=== PATIENT | male | born 1940 | race Caucasian/White ===

== ENCOUNTER 2017-02-13 23:59 | Inpatient (IN) | payer MEDICARE, MEDICAID ==
[~2017-02-13] VITALS: Ht 162.6 cm; Wt 50.3 kg
[2017-02-14 00:45] LABS: BASOPHILS # (AUTO) 0.1 K/uL (0.0-8.0); EOSINOPHILS # (AUTO) 0.1 K/uL (0.0-0.7); EOSINOPHILS % (AUTO) 1.2 % (0.0-7.0); HEMATOCRIT 35.5 % (40-50); HEMOGLOBIN 11.9 G/DL (14.0-18.0); LYMPHOCYTES # (AUTO) 1.5 K/UL (0.8-4.8); LYMPHOCYTES % (AUTO) 14.5 % (20.5-51.5); MEAN CORPUSCULAR HEMOGLOBIN 29.8 UUG (27.0-31.0); MEAN CORPUSCULAR HGB CONC 34 g/dL (32.0-37.0); MEAN CORPUSCULAR VOLUME 88.4 FL (82.0-92.0); MONOCYTES # (AUTO) 1.3 K/UL (0.1-1.30); MONOCYTES % (AUTO) 12.3 % (0.0-11.0); NEUTROPHILS # (AUTO) 7.5 K/UL (1.8-8.9); PLATELET COUNT (AUTO) 279 K/UL (150-450); RED BLOOD CELL COUNT(AUTO) 4.02 MIL/UL (4.7-6.1); WHITE BLOOD COUNT (AUTO) 10.5 K/UL (4.0-11.2)
--- NOTE | 2017-02-14 00:45 | NUR ---
Pt biba for hallucinations and ALOC. Pt alert to name, date and place. However is confused about situation. Pt here for medical clearance and psych eval. Pt resting in position of comfort for self. Resp even and unlabored.
[2017-02-14 00:53] LABS: CARBON DIOXIDE 30 mmol/L (21-32); CHLORIDE 105 mmol/L (98-107); CREATININE 1.1 mg/dL (0.6-1.3); GLUCOSE 117 mg/dL (74-106); POTASSIUM 3.9 mmol/L (3.5-5.1); UREA NITROGEN, BLOOD 22 mg/dL (7-18)
[2017-02-14 01:02] LABS: ACETAMINOPHEN < 2.0 ug/mL (10-30); ALANINE AMINOTRANSFERASE 14 U/L (16-63); ALKALINE PHOSPHATASE 77 U/L (50-136); ASPARTATE AMINOTRANSFERASE 14 U/L (15-37); BILIRUBIN,DIRECT 0.1 mg/dL (0.0-0.2); BILIRUBIN,TOTAL 0.4 mg/dL (0.2-1.0); TOTAL PROTEIN, SERUM 7.1 g/dL (6.4-8.2)
[2017-02-14 01:03] LABS: ETHANOL < 3 MG/DL (0-0)
--- NOTE | 2017-02-14 01:12 | NUR ---
Pt to CT via d[facility]
[2017-02-14] MEDS ORDERED: ACET-2154 PO (01:18)
[2017-02-14] MEDS ORDERED: DOCU100C36 PO (01:18)
[2017-02-14] MEDS ORDERED: DEXT15DR6 EACHEYE (01:18)
[2017-02-14] MEDS ORDERED: ESCI10TA PO (01:18)
[2017-02-14] MEDS ORDERED: TAMS-3 PO (01:18)
[2017-02-14] MEDS ORDERED: IPRA3AMP IH (01:18)
[2017-02-14] MEDS ORDERED: ALBU2.5V13 IH (01:18)
[2017-02-14] MEDS ORDERED: PANT20TA2 PO (01:18)
[2017-02-14] MEDS ORDERED: MORP30TA59 PO (01:18)
[2017-02-14] MEDS ORDERED: DEXT15SY3 PO (01:18)
[2017-02-14] MEDS ORDERED: METF500T4 PO (01:18)
[2017-02-14] MEDS ORDERED: MULT1TAB11 PO (01:18)
[2017-02-14] MEDS ORDERED: TRAM50TA2 PO (01:18)
[2017-02-14] MEDS ORDERED: CYAN10009 PO (01:18)
[2017-02-14] MEDS ORDERED: ASCO500T10 PO (01:18)
[2017-02-14 01:31] LABS: THYROID STIMULATING HORMONE 0.279 mIU/mL (0.358-3.740)
--- NOTE | 2017-02-14 02:45 | NUR ---
Pt becoming agitated. Stating" I dont know why I am here. If I am infected I should be treated like a human. I dont know why my doctor sent me here." Pt given a warm blanket and repositioned. Pt appeared to become calmer.
--- NOTE | 2017-02-14 03:00 | NUR ---
Attempted to check pt's brief for incontinence, pt refused stated " leave me alone, this aint right"
--- NOTE | 2017-02-14 03:40 | NUR ---
PT RECEIVED FROM ER VIA [employer]. PT A/OX2. V/S STABLE. NO SIGNS OF ACUTE DISTRESS. NO COMPLAINTS OF PAIN. ABLE TO MAKE NEEDS KNOWN. SAFETY MEASURES IMPLEMENTED. CALL LIGHT WITHIN REACH. WILL CONT TO MONITOR.
[2017-02-14 04:28] VITALS: BP 105/61
--- NOTE | 2017-02-14 07:00 | NUR ---
PT WAS ASLEEP INTERMITTENTLY THROUGHOUT SHIFT. V/S STABLE. NO SIGNS OF ACUTE DISTRESS. NO COMPLAINTS OF PAIN. NEEDS ATTENDED. SAFETY MAINTAINED. CALL LIGHT WITHIN REACH.
--- NOTE | 2017-02-14 07:00 | NUR ---
PT IS SLEEPING IN BED COMFORTABLY. NO PAIN NOTED. NO S/S OF RESPIRATORY DISTRESS NOTED. IV INTACT/PATENT. ALL SAFETY NEEDS ARE MET. 1:1 SITTER FOR SAFETY
[2017-02-14] MEDS ORDERED: HOME MED MISCELLANEOUS INH PRN (10:45)
[2017-02-14] MEDS ORDERED: ACETAMINOPHEN 325 MG TABLET PO PRN (10:45)
[2017-02-14] MEDS ORDERED: POLYVINYL ALCOHOL OPHT DROPS 15 ML BOTTLE EACHEYE PRN (10:45)
[2017-02-14] MEDS ORDERED: GUAIFENESIN/DEXTROMETHORPHAN 5 ML UDC PO PRN (10:45)
[2017-02-14] MEDS ORDERED: MORPHINE SULFATE SR 30 MG TABLET.SA PO SCH (10:45)
[2017-02-14] MEDS ORDERED: TRAMADOL HCL 50 MG TABLET PO PRN (10:45)
[2017-02-14] MEDS ORDERED: IPRATROPIUM BROMIDE 0.5 MG/2.5 ML NEBU NEB PRN (11:00)
[2017-02-14] MEDS ORDERED: ALBUTEROL SULFATE 2.5 MG/ 0.5 ML NEBU NEB PRN (11:00)
[2017-02-14] MEDS: ESCITALOPRAM OXALATE 10 MG TABLET PO SCH (11:20)
[2017-02-14] MEDS: METFORMIN HCL 500 MG TABLET PO SCH (11:20)
[2017-02-14 11:22] VITALS: BP 123/62
[2017-02-14 13:26] LABS: *BILIRUBIN,URIN NEGATIVE (NEGATIVE); *BLOOD, URINE NEGATIVE (NEGATIVE); *COLOR,URINE YELLOW (YELLOW); *KETONES,URINE 2+ (NEGATIVE); *PROTEIN,URINE 1+ (NEGATIVE); LEUKOCYTE ESTERASE ,URINE NEGATIVE (NEGATIVE); NITRITE, URINE NEGATIVE (NEGATIVE); UGLUCOSE NEGATIVE (NEGATIVE)
[2017-02-14 13:38] LABS: *AMPHETAMINE, URINE NEGATIVE (NEGATIVE); *BARBITURATE, URINE NEGATIVE (NEGATIVE); *CANNABINOID, URINE NEGATIVE (NEGATIVE); *COCCAINE, URINE NEGATIVE (NEGATIVE); *OPIATE, URINE POSITIVE (NEGATIVE); *PHENCYCLIDINE SCREEN,URINE NEGATIVE (NEGATIVE)
[2017-02-14 13:40] LABS: *CLARITY,URINE CLEAR (CLEAR)
[2017-02-14 13:41] LABS: BACTERIA,URINE NONE SEEN /HPF (NONE SEEN); MUCUS,URINE FEW /LPF (0-FEW); RBC,URINE 0-3 /HPF (0-3); SQUAMOUS EPITHELIAL CELL,UR FEW /HPF (NONE SEEN); WBC,URINE 0-3 /HPF (0-3)
[2017-02-14 15:34] VITALS: BP 126/82
--- NOTE | 2017-02-14 19:29 | NUR ---
NO CHANGES NOTED. ALL SAFETY NEEDS ARE MET. 1:1 SITTER FOR SAFETY NEEDS. PT IS SLEEPING IN BED COMFORTABLY. WOUND CARE DONE.
[2017-02-14 20:14] VITALS: BP 132/82
--- NOTE | 2017-02-14 20:19 | NUR ---
PATIENT RECEIVED IN BED SITTING UP IN BED, NO ACUTE DISTRESS NOTED. AOX1, CONFUSED AND FORGETFUL. PATIENT ON 2 LITERS VIA NASAL CANULA. PATIENT DIAPER CHANGED BY STAFF, SKIN CARE PROVIDED. NO PHYSICAL DISCOMFORT NOTED. PT ON 1:1 FOR SAFETY. BED IN LOW AND LOCKED POSITION, CALL LIGHT WITHIN REACH.
[2017-02-14] MEDS: DOCUSATE SODIUM 100 MG CAPSULE PO SCH (21:00)
[2017-02-14] MEDS: MORPHINE SULFATE SR 30 MG TABLET.SA PO SCH (21:00)
--- NOTE | 2017-02-14 23:00 | NUR ---
Patient diaper changed by staff, skin care provided. Remains on oxygen at 2 liters via nasal canula. 1:1 sitter at bedside. No acute distress noted. Will continue to monitor for safety.
[2017-02-15 04:27] VITALS: BP 121/81
--- NOTE | 2017-02-15 04:55 | NUR ---
Patient awake, had vomiting episode x1. Refused medication for nausea vomiting. Observed to be congested, pt also refused robitussin prn. head of bed elevated. Pt remains on oxygen at 2 liters nasal canula. 1:1 at bedisde.
[2017-02-15] MEDS: PANTOPRAZOLE SODIUM 40 MG TABLET.DR PO SCH ×2 (06:04→06:12)
[2017-02-15] MEDS ORDERED: MORP30TA59 PO ×2 (07:53→16:43)
[2017-02-15] MEDS ORDERED: PANT40TA2 PO ×2 (07:53→16:44)
[2017-02-15] MEDS: METFORMIN HCL 500 MG TABLET PO SCH (08:00)
--- NOTE | 2017-02-15 08:30 | NUR ---
PATIENT IS AWAKE ALERT AND SEEMS AWARE REFUSED ALL HIS MEDICATIONS STATED DOES NOT WANT TO TAKE ANYTHING AT THIS TIME.HE ALSO REFUSED BREAKFAST WITH NO REASONS AT THIS TIME.WILL CONTINUE TO OBSERVE PATIENT.
[2017-02-15] MEDS: DOCUSATE SODIUM 100 MG CAPSULE PO SCH (08:44)
[2017-02-15] MEDS: ESCITALOPRAM OXALATE 10 MG TABLET PO SCH (08:45)
--- NOTE | 2017-02-15 08:45 | NUR ---
DR JEFFREY HERE AND SEEN PATIENT WITH ORDER TO DISCHARGE PATIENT TODAY AND THE PLAN IS TO HAVE PATIENT SEEN BY THE CRISIS TEAM AND THEN WILL SEEN BY THE PSYCHIATRIST FOR POSSIBLE PSYCH ADMISSION TODAY.
[2017-02-15] MEDS: MORPHINE SULFATE SR 30 MG TABLET.SA PO SCH (08:46)
[2017-02-15] MEDS ORDERED: ASCORBIC ACID 500 MG TABLET PO SCH (09:00)
[2017-02-15] MEDS ORDERED: MULTIVIT, IRON, MIN NO. 8, FA TABLET PO SCH (09:00)
[2017-02-15] MEDS ORDERED: TAMSULOSIN HCL 0.4 MG CAP.SR.24H PO SCH (09:00)
[2017-02-15] MEDS ORDERED: CYANOCOBALAMIN 1,000 MCG TABLET PO SCH (09:00)
--- NOTE | 2017-02-15 10:56 | NUR ---
PATIENT IS SEEN BY THE CRISIS TEAM AND PLACED ON 5150 PER THE STRETCHER DRIER OPERATOR PATIENT WILL BE DISCHARGED TO MENTAL HEALTH THIS AFTERNOON.
[2017-02-15 11:10] VITALS: BP 145/84
--- NOTE | 2017-02-15 15:30 | NUR ---
PATIENT DISCHARGED TO MENTAL HEALTH UNIT BY W/CHAIR WITH ALL HIS PERSONAL BELONGINGS AND DISCHARGE PAPER WORK.
[2017-02-15] MEDS ORDERED: IPRA3AMP IH (16:33)
[2017-02-15] MEDS ORDERED: MORP15TA60 PO (16:43)
[2017-02-15] MEDS ORDERED: ALBU2.5V13 IH (18:18)
[2017-02-15] MEDS ORDERED: POLY15DR27 EACHEYE (18:18)
[2017-02-15] MEDS ORDERED: IPRA0.2S6 NEB (18:19)
[2017-02-15] MEDS ORDERED: MIRTAZAPINE 15 MG TABLET PO SCH ×2 (21:00)
[2017-02-16] MEDS ORDERED: HOME MED MISCELLANEOUS PO SCH (09:00)
== END 2017-02-15 15:30 | DRG 885 ==
LOC: ER 02-14 00:04 → MED 02-14 03:27
PROVIDERS: ADMIT Internal Medicine Nephrology; ATTEND Internal Medicine Nephrology
DX: F39 Unspecified mood [affective] disorder (principal); G92 Toxic encephalopathy; T50.905A Adverse effect of unspecified drugs, medicaments and biological substances, initial encounter; F03.90 Unspecified dementia, unspecified severity, without behavioral disturbance, psychotic disturbance, mood disturbance, and anxiety; D64.9 Anemia, unspecified; E11.21 Type 2 diabetes mellitus with diabetic nephropathy; J44.9 Chronic obstructive pulmonary disease, unspecified; Z79.84 Long term (current) use of oral hypoglycemic drugs; N40.0 Benign prostatic hyperplasia without lower urinary tract symptoms; Z79.899 Other long term (current) drug therapy; K21.9 Gastro-esophageal reflux disease without esophagitis; G89.4 Chronic pain syndrome; F22 Delusional disorders; F17.200 Nicotine dependence, unspecified, uncomplicated; Z88.8 Allergy status to other drugs, medicaments and biological substances; T42.4X5A Adverse effect of benzodiazepines, initial encounter; Y92.129 Unspecified place in nursing home as the place of occurrence of the external cause
CPT/HCPCS: 36415; 70030-TC; 70450; 71010; 80307; 84443; 85025; 85730; 87086; 93005; A4663; G0480; G0480-TC

== ENCOUNTER 2017-02-15 16:09 | Inpatient (IN) | payer MEDICARE, MEDICAID ==
[~2017-02-15] VITALS: Ht 162.6 cm; Wt 44.5 kg
[2017-02-15 15:30] VITALS: BP 140/89
[~2017-02-15 16:09] MED LIST: ACET-2154 PO; ASCO500T10 PO; CYAN10009 PO; DEXT15DR6 EACHEYE; DEXT15SY3 PO; DOCU100C36 PO; ESCI10TA PO; IPRA3AMP IH; METF500T4 PO; MORP30TA59 PO; MULT1TAB11 PO; PANT20TA2 PO; PANT40TA2 PO; TAMS-3 PO; TRAM50TA2 PO
[2017-02-15] MEDS ORDERED: IPRA3AMP IH (16:33)
--- NOTE | 2017-02-15 16:37 | NUR ---
Pt arrived to unit on w/c accompanied by [facility] staff. Pt is slightly anxious and cooperative. Able to make most needs known. No combative or aggressive behavior noted. Refused body check at this time while laying in bed, stating "maybe later." Denies pain or discomfort at this time.
[2017-02-15] MEDS ORDERED: MORP30TA59 PO (16:43)
[2017-02-15] MEDS ORDERED: MORP15TA60 PO (16:43)
[2017-02-15] MEDS ORDERED: PANT40TA2 PO (16:44)
[2017-02-15] MEDS ORDERED: ACETAMINOPHEN 325 MG TABLET PO PRN (16:45)
[2017-02-15] MEDS ORDERED: MAGNESIUM HYDROXIDE 30 ML LIQUID UDC PO PRN (16:45)
[2017-02-15] MEDS ORDERED: QUETIAPINE FUMARATE 25 MG TABLET PO PRN (16:45)
[2017-02-15] MEDS ORDERED: MAG HYDROX/AL HYDROX/SIMETH 30 ML LIQUID UDC PO PRN (16:45)
[2017-02-15] MEDS ORDERED: ZOLPIDEM 5 MG TABLET PO PRN (16:45)
[2017-02-15] MEDS ORDERED: POLY15DR27 EACHEYE (18:18)
[2017-02-15] MEDS ORDERED: ALBU2.5V13 IH (18:18)
[2017-02-15] MEDS ORDERED: IPRA0.2S6 NEB (18:19)
[2017-02-15] MEDS ORDERED: IPRATROPIUM BROMIDE 0.5 MG/2.5 ML NEBU NEB PRN ×2 (18:30)
[2017-02-15] MEDS ORDERED: ALBUTEROL SULFATE 2.5 MG/ 0.5 ML NEBU IH PRN (18:30)
[2017-02-15] MEDS ORDERED: POLYVINYL ALCOHOL OPHT DROPS 15 ML BOTTLE EACHEYE PRN (18:30)
[2017-02-15 20:28] VITALS: BP 133/83
[2017-02-15] MEDS: DOCUSATE SODIUM 100 MG CAPSULE PO SCH (21:00)
[2017-02-15] MEDS: MORPHINE SULFATE SR 30 MG TABLET.SA PO SCH (21:00)
[2017-02-15] MEDS: MIRTAZAPINE 15 MG TABLET PO SCH (21:00)
[2017-02-15] MEDS: MORPHINE SULFATE SR 15 MG TABLET.SA PO SCH (21:00)
--- NOTE | 2017-02-15 22:00 | NUR ---
received to care, lying in bed, isolative, but able to make his needs known, to staff. refused all bedtime medications, including the remeron dose, that was to be started tonight. remains needy, using a packer to call staff frequently, to have all his needs met. as of 2199, he remains calm, but continues to refuse all medications. also continues to refuse a body check, stating, "maybe later" appears to be dozing off. no distress noted. will continue to monitor closely.
[2017-02-16] MEDS: MORPHINE SULFATE SR 30 MG TABLET.SA PO SCH ×3 (00:23→21:00)
--- NOTE | 2017-02-16 00:23 | NUR ---
pt is now awake, c/o severs pain (10/10) on pain scale. his routine dose of MS contin, which he refused at 2100, was given at this time. he continues to refuse the remeron.
[2017-02-16] MEDS: MORPHINE SULFATE SR 15 MG TABLET.SA PO SCH ×3 (00:24→21:00)
--- NOTE | 2017-02-16 01:00 | NUR ---
appears to be asleep. no distress noted.
--- NOTE | 2017-02-16 06:00 | NUR ---
slept 4.5 hours, total. continues to sleep, but easy to awaken. no distress noted. will continue to monitor closely.
[2017-02-16] MEDS: PANTOPRAZOLE SODIUM 40 MG TABLET.DR PO SCH (06:10)
[2017-02-16 07:30] VITALS: BP 128/82
[2017-02-16] MEDS ORDERED: Medication Not On Formulary EA (Multivitamins W-Minerals (Multivitamin With Minerals) 1 PO SCH (09:00)
[2017-02-16] MEDS: TAMSULOSIN HCL 0.4 MG CAP.SR.24H PO SCH (09:24)
[2017-02-16] MEDS: CYANOCOBALAMIN 1,000 MCG TABLET PO SCH (09:25)
[2017-02-16] MEDS: METFORMIN HCL 500 MG TABLET PO SCH (09:25)
[2017-02-16] MEDS: ASCORBIC ACID 500 MG TABLET PO SCH (09:25)
[2017-02-16] MEDS: DOCUSATE SODIUM 100 MG CAPSULE PO SCH ×2 (09:25→21:00)
[2017-02-16] MEDS: MULTIVIT, IRON, MIN NO. 8, FA TABLET PO SCH (09:25)
[2017-02-16 17:00] VITALS: BP 92/61
[2017-02-16 20:29] VITALS: BP 93/48
[2017-02-16] MEDS: MIRTAZAPINE 15 MG TABLET PO SCH (21:00)
--- NOTE | 2017-02-16 22:00 | NUR ---
received to care, lying in bed, isolative, but pleasant upon approach. refused his remeron and colace doses. b/p was initially 93/48, so his routine ms contin dose was held. pt was placed in [place] position, and po fluids were given. he was encouraged to eat, but took only 1 saltine cracker. b/p at 2129 was 86/57, and as of 2199, it is 98/63, so the ms contin was still held. pt denies pain at this time. will continue to monitor closely.
[2017-02-17] MEDS: MORPHINE SULFATE SR 30 MG TABLET.SA PO SCH ×2 (07:00→21:00)
--- NOTE | 2017-02-17 07:00 | NUR ---
PT IS NOW AWAKE. ASSISTED WITH AM CARE, AND SHOWER. CURRENTLY IN BED. C/O BLE PAIN 10/10 ON PAIN SCALE B/P IS NOW 111/73, HR 97, SO HIS am dose of MS CONTIN WAS GIVEN AT THIS TIME. REPORT GIVEN TO ONCOMING SHIFT.
[2017-02-17] MEDS: GUAIFENESIN/DEXTROMETHORPHAN 5 ML UDC PO PRN (07:26)
[2017-02-17 07:30] VITALS: BP 105/68
[2017-02-17] MEDS: MULTIVIT, IRON, MIN NO. 8, FA TABLET PO SCH (09:00)
[2017-02-17] MEDS: MORPHINE SULFATE SR 15 MG TABLET.SA PO SCH ×2 (09:00→21:00)
[2017-02-17] MEDS: NICOTINE 14 MG/24HR PATCH TD SCH (09:00)
--- NOTE | 2017-02-17 09:00 | NUR ---
GPS./RN- No MS Contin, patient received dose early am, too close to administer another dose.
[2017-02-17] MEDS: TAMSULOSIN HCL 0.4 MG CAP.SR.24H PO SCH (09:41)
[2017-02-17] MEDS: GABAPENTIN 100 MG CAPSULE PO SCH ×2 (09:41→21:51)
[2017-02-17] MEDS: CYANOCOBALAMIN 1,000 MCG TABLET PO SCH (09:41)
[2017-02-17] MEDS: ASCORBIC ACID 500 MG TABLET PO SCH (09:41)
[2017-02-17] MEDS: DOCUSATE SODIUM 100 MG CAPSULE PO SCH ×2 (09:42→21:00)
[2017-02-17] MEDS: METFORMIN HCL 500 MG TABLET PO SCH (09:47)
[2017-02-17 16:00] VITALS: BP 105/71
--- NOTE | 2017-02-17 16:32 | NUR ---
Initial discharge instructions: The patient resides at [facility] ([facility]) [[address], [place] [address] ]. LUIGI spoke with Syl in admissions who stated that they will be accepting the patient back upon discharge. SW spoke with patient who would like to return to the facility upon discharge. Luigi has called the patient's nephew Kimani Bejarano to discuss DC planning. SS will speak with patient, family, and MD regarding most appropriate DC plan. SS will form a safe and proper discharge.
[2017-02-17 20:11] VITALS: BP 88/58
[2017-02-17 22:00] VITALS: BP 99/66
[2017-02-17] MEDS: MIRTAZAPINE 15 MG TABLET PO SCH (22:00)
--- NOTE | 2017-02-17 22:00 | NUR ---
received to care, lying in bed, isolative, but pleasant upon approach. b/p was initially 88/56, so his routine ms contin dose was held. pt was placed in [place] position, and po fluids were given. he was encouraged to eat, but took only 2 saltine crackers. as of 2199, it is 99/66, so the ms contin was still held. bedtime doses of remeron and neurontin were given. pt denies pain at this time. will continue to monitor closely.
[2017-02-18] MEDS: GUAIFENESIN/DEXTROMETHORPHAN 5 ML UDC PO PRN (02:42)
[2017-02-18] MEDS: PANTOPRAZOLE SODIUM 40 MG TABLET.DR PO SCH (05:50)
--- NOTE | 2017-02-18 06:00 | NUR ---
slept well last night, 9.5 hours, total. continues to sleep, but easy to awaken. no distress noted. will continue to monitor closely.
[2017-02-18 07:30] VITALS: BP 91/53
[2017-02-18 07:57] LABS: BASOPHILS % (AUTO) 0.3 % (0.0-2.0); EOSINOPHILS # (AUTO) 0.2 K/uL (0.0-0.7); EOSINOPHILS % (AUTO) 1.1 % (0.0-7.0); HEMOGLOBIN 13.8 G/DL (14.0-18.0); LYMPHOCYTES # (AUTO) 2.3 K/UL (0.8-4.8); LYMPHOCYTES % (AUTO) 17.2 % (20.5-51.5); MEAN CORPUSCULAR HGB CONC 34 g/dL (32.0-37.0); MEAN CORPUSCULAR VOLUME 83.3 FL (82.0-92.0); MONOCYTES % (AUTO) 7.1 % (0.0-11.0); NEUTROPHILS # (AUTO) 10.2 K/UL (1.8-8.9); NEUTROPHILS % (AUTO) 74.3 % (38.5-71.5); PLATELET COUNT (AUTO) 274 K/UL (150-450); RED BLOOD CELL COUNT(AUTO) 4.92 MIL/UL (4.7-6.1); WHITE BLOOD COUNT (AUTO) 13.7 K/UL (4.0-11.2)
[2017-02-18 08:27] LABS: ALANINE AMINOTRANSFERASE 8 U/L (16-63); ALKALINE PHOSPHATASE 78 U/L (50-136); ASPARTATE AMINOTRANSFERASE 14 U/L (15-37); BILIRUBIN,TOTAL 0.6 mg/dL (0.2-1.0); CARBON DIOXIDE 30 mmol/L (21-32); CHLORIDE 103 mmol/L (98-107); CREATININE 0.9 mg/dL (0.6-1.3); GLUCOSE 79 mg/dL (74-106); MAGNESIUM 2.1 mg/dL (1.8-2.4); POTASSIUM 3.5 mmol/L (3.5-5.1); TOTAL PROTEIN, SERUM 7.6 g/dL (6.4-8.2); UREA NITROGEN, BLOOD 19 mg/dL (7-18)
[2017-02-18] MEDS: MULTIVIT, IRON, MIN NO. 8, FA TABLET PO SCH (09:00)
[2017-02-18] MEDS: DOCUSATE SODIUM 100 MG CAPSULE PO SCH ×2 (09:00→20:53)
[2017-02-18] MEDS: TAMSULOSIN HCL 0.4 MG CAP.SR.24H PO SCH (09:00)
[2017-02-18] MEDS: ASCORBIC ACID 500 MG TABLET PO SCH (09:00)
[2017-02-18] MEDS: GABAPENTIN 100 MG CAPSULE PO SCH ×3 (09:00→20:48)
[2017-02-18] MEDS: METFORMIN HCL 500 MG TABLET PO SCH ×2 (09:00→13:53)
[2017-02-18] MEDS: MORPHINE SULFATE SR 15 MG TABLET.SA PO SCH ×2 (09:00→20:55)
[2017-02-18] MEDS: CYANOCOBALAMIN 1,000 MCG TABLET PO SCH (09:00)
[2017-02-18] MEDS: MORPHINE SULFATE SR 30 MG TABLET.SA PO SCH (09:00)
[2017-02-18] MEDS: NICOTINE 14 MG/24HR PATCH TD SCH (09:00)
[2017-02-18 09:52] LABS: EOSINOPHILS % (MANUAL) 2 % (0-8); LYMPHOCYTES % (MANUAL) 19 % (20-40); MONOCYTES % (MANUAL) 9 % (2-10); NEUTROPHILS % (MANUAL) 70 % (42-75)
[2017-02-18 13:00] VITALS: BP 112/64
[2017-02-18 15:37] VITALS: BP 96/59
--- NOTE | 2017-02-18 18:35 | NUR ---
patient has been non compluiant with taking meds and in bed all shift with limited disclousure , pt monitored for safety
[2017-02-18 20:37] VITALS: BP 106/68
[2017-02-18] MEDS: MIRTAZAPINE 15 MG TABLET PO SCH (20:55)
--- NOTE | 2017-02-18 21:27 | NUR ---
Nurses notes. RN At approximately 1955 called the office of Dr. Mcclure at [phone]. left message to call us back re: WBC of 13.7 and clarification of Medication. At approx. 1999. Dr Frederick, Who is the MD distribution designer, called back. She was informed of patient's WBC of 13.7, and clarification of Morphine PO medication; she stated that WBC count "it was okay and to let Dr Mcclure know tomorrow morning. She also stated that patient is to take Morphine 45mg PO at HS and to ask pharmacy to combine the two orders. We will endorse to the incoming shift.
[2017-02-19 07:30] VITALS: BP 115/71
[2017-02-19 07:41] LABS: ALANINE AMINOTRANSFERASE 9 U/L (16-63); ALKALINE PHOSPHATASE 72 U/L (50-136); ASPARTATE AMINOTRANSFERASE 14 U/L (15-37); BILIRUBIN,TOTAL 0.4 mg/dL (0.2-1.0); CARBON DIOXIDE 30 mmol/L (21-32); CHLORIDE 104 mmol/L (98-107); CREATININE 0.8 mg/dL (0.6-1.3); GLUCOSE 105 mg/dL (74-106); PHOSPHOROUS 2.6 mg/dL (2.5-4.9); POTASSIUM 3.5 mmol/L (3.5-5.1); TOTAL PROTEIN, SERUM 7.5 g/dL (6.4-8.2); UREA NITROGEN, BLOOD 16 mg/dL (7-18)
[2017-02-19 08:12] LABS: BASOPHILS % (AUTO) 0.2 % (0.0-2.0); EOSINOPHILS # (AUTO) 0.1 K/uL (0.0-0.7); HEMATOCRIT 39.7 % (40-50); HEMOGLOBIN 13.2 G/DL (14.0-18.0); LYMPHOCYTES # (AUTO) 1.7 K/UL (0.8-4.8); LYMPHOCYTES % (AUTO) 16.1 % (20.5-51.5); MEAN CORPUSCULAR HGB CONC 33 g/dL (32.0-37.0); MONOCYTES # (AUTO) 0.8 K/UL (0.1-1.30); MONOCYTES % (AUTO) 7.3 % (0.0-11.0); NEUTROPHILS # (AUTO) 7.9 K/UL (1.8-8.9); NEUTROPHILS % (AUTO) 75.4 % (38.5-71.5); PLATELET COUNT (AUTO) 353 K/UL (150-450); RED BLOOD CELL COUNT(AUTO) 4.73 MIL/UL (4.7-6.1); WHITE BLOOD COUNT (AUTO) 10.5 K/UL (4.0-11.2)
[2017-02-19] MEDS: CYANOCOBALAMIN 1,000 MCG TABLET PO SCH (09:00)
[2017-02-19] MEDS: MULTIVIT, IRON, MIN NO. 8, FA TABLET PO SCH (09:00)
[2017-02-19] MEDS: ASCORBIC ACID 500 MG TABLET PO SCH (09:00)
[2017-02-19] MEDS: NICOTINE 14 MG/24HR PATCH TD SCH ×2 (09:00→10:11)
[2017-02-19] MEDS: MORPHINE SULFATE SR 15 MG TABLET.SA PO SCH ×2 (10:12→21:00)
[2017-02-19] MEDS: DOCUSATE SODIUM 100 MG CAPSULE PO SCH ×2 (10:12→21:19)
[2017-02-19] MEDS: PANTOPRAZOLE SODIUM 40 MG TABLET.DR PO SCH (10:12)
[2017-02-19] MEDS: TAMSULOSIN HCL 0.4 MG CAP.SR.24H PO SCH (10:13)
[2017-02-19] MEDS: GABAPENTIN 100 MG CAPSULE PO SCH ×3 (10:13→17:37)
[2017-02-19 16:47] VITALS: BP 99/66
[2017-02-19 20:35] VITALS: BP 91/60
[2017-02-19 20:55] VITALS: BP 99/63
[2017-02-19] MEDS: MIRTAZAPINE 15 MG TABLET PO SCH (21:00)
[2017-02-19] MEDS: QUETIAPINE FUMARATE 25 MG TABLET PO SCH (21:00)
[2017-02-20 07:30] VITALS: BP 115/74
[2017-02-20] MEDS: GABAPENTIN 100 MG CAPSULE PO SCH ×3 (08:50→16:36)
[2017-02-20] MEDS: PANTOPRAZOLE SODIUM 40 MG TABLET.DR PO SCH (08:50)
[2017-02-20] MEDS: CYANOCOBALAMIN 1,000 MCG TABLET PO SCH (08:51)
[2017-02-20] MEDS: ASCORBIC ACID 500 MG TABLET PO SCH (08:51)
[2017-02-20] MEDS: MULTIVIT, IRON, MIN NO. 8, FA TABLET PO SCH (08:51)
[2017-02-20] MEDS: NICOTINE 14 MG/24HR PATCH TD SCH (09:00)
[2017-02-20] MEDS: TAMSULOSIN HCL 0.4 MG CAP.SR.24H PO SCH (09:09)
[2017-02-20] MEDS: METFORMIN HCL 500 MG TABLET PO SCH (09:09)
[2017-02-20] MEDS: DOCUSATE SODIUM 100 MG CAPSULE PO SCH ×2 (09:10→20:06)
[2017-02-20] MEDS: MORPHINE SULFATE SR 15 MG TABLET.SA PO SCH ×2 (09:10→20:07)
[2017-02-20 16:05] VITALS: BP 136/50
[2017-02-20] MEDS: QUETIAPINE FUMARATE 25 MG TABLET PO SCH (20:06)
[2017-02-20] MEDS: MIRTAZAPINE 15 MG TABLET PO SCH (20:07)
[2017-02-20 20:09] VITALS: BP 107/61
[2017-02-21 07:30] VITALS: BP 109/76
[2017-02-21] MEDS: TAMSULOSIN HCL 0.4 MG CAP.SR.24H PO SCH (08:59)
[2017-02-21] MEDS: MULTIVIT, IRON, MIN NO. 8, FA TABLET PO SCH (08:59)
[2017-02-21] MEDS: METFORMIN HCL 500 MG TABLET PO SCH (08:59)
[2017-02-21] MEDS: CYANOCOBALAMIN 1,000 MCG TABLET PO SCH (08:59)
[2017-02-21] MEDS: ASCORBIC ACID 500 MG TABLET PO SCH (08:59)
[2017-02-21] MEDS: DOCUSATE SODIUM 100 MG CAPSULE PO SCH ×2 (08:59→20:56)
[2017-02-21] MEDS: NICOTINE 14 MG/24HR PATCH TD SCH (09:00)
[2017-02-21] MEDS: MORPHINE SULFATE SR 15 MG TABLET.SA PO SCH ×2 (09:00→20:56)
[2017-02-21] MEDS: GABAPENTIN 100 MG CAPSULE PO SCH ×3 (09:49→16:20)
[2017-02-21] MEDS ORDERED: GABAPENTIN 100 MG CAPSULE ONE ×2 (09:59→13:44)
[2017-02-21 16:02] VITALS: BP 107/72
[2017-02-21 19:49] VITALS: BP 122/68
[2017-02-21] MEDS: QUETIAPINE FUMARATE 25 MG TABLET PO SCH (20:56)
[2017-02-21] MEDS: MIRTAZAPINE 15 MG TABLET PO SCH (20:56)
[2017-02-22] MEDS: PANTOPRAZOLE SODIUM 40 MG TABLET.DR PO SCH (06:31)
[2017-02-22 07:30] VITALS: BP 103/71
[2017-02-22] MEDS: NICOTINE 14 MG/24HR PATCH TD SCH (09:00)
[2017-02-22] MEDS: METFORMIN HCL 500 MG TABLET PO SCH (09:00)
[2017-02-22] MEDS: MULTIVIT, IRON, MIN NO. 8, FA TABLET PO SCH (09:30)
[2017-02-22] MEDS: ASCORBIC ACID 500 MG TABLET PO SCH (09:30)
[2017-02-22] MEDS: CYANOCOBALAMIN 1,000 MCG TABLET PO SCH (09:31)
[2017-02-22] MEDS: TAMSULOSIN HCL 0.4 MG CAP.SR.24H PO SCH (09:32)
[2017-02-22] MEDS: GABAPENTIN 100 MG CAPSULE PO SCH ×3 (09:32→17:44)
[2017-02-22] MEDS: DOCUSATE SODIUM 100 MG CAPSULE PO SCH ×2 (09:32→20:44)
[2017-02-22] MEDS: MORPHINE SULFATE SR 15 MG TABLET.SA PO SCH (09:32)
[2017-02-22 15:37] VITALS: BP 100/66
[2017-02-22] MEDS: MIRTAZAPINE 15 MG TABLET PO SCH (20:45)
[2017-02-22] MEDS: QUETIAPINE FUMARATE 25 MG TABLET PO SCH (20:45)
[2017-02-22 20:52] VITALS: BP 96/65
[2017-02-22] MEDS ORDERED: MORPHINE SULFATE IR 30 MG TABLET PO SCH (21:00)
[2017-02-23] MEDS ORDERED: Z GUARD REMEDY PASTE 57 GM TUBE TOP PRN (06:45)
[2017-02-23 07:30] VITALS: BP 90/52
[2017-02-23] MEDS: CYANOCOBALAMIN 1,000 MCG TABLET PO SCH (08:19)
[2017-02-23] MEDS: MULTIVIT, IRON, MIN NO. 8, FA TABLET PO SCH (08:19)
[2017-02-23] MEDS: TAMSULOSIN HCL 0.4 MG CAP.SR.24H PO SCH (08:20)
[2017-02-23] MEDS: METFORMIN HCL 500 MG TABLET PO SCH (08:20)
[2017-02-23] MEDS: MORPHINE SULFATE SR 15 MG TABLET.SA PO SCH ×2 (08:20→08:32)
[2017-02-23] MEDS: DOCUSATE SODIUM 100 MG CAPSULE PO SCH ×2 (08:20→20:40)
[2017-02-23] MEDS: NICOTINE 14 MG/24HR PATCH TD SCH (08:21)
[2017-02-23] MEDS: GABAPENTIN 100 MG CAPSULE PO SCH ×3 (08:24→18:10)
[2017-02-23] MEDS: ASCORBIC ACID 500 MG TABLET PO SCH (08:24)
[2017-02-23 15:34] VITALS: BP 90/50
[2017-02-23] MEDS ORDERED: MORPHINE SULFATE IR 30 MG TABLET PO PRN (17:00)
[2017-02-23] MEDS ORDERED: MORPHINE SULFATE SR 15 MG TABLET.SA PO PRN (17:00)
[2017-02-23] MEDS: QUETIAPINE FUMARATE 25 MG TABLET PO SCH (20:40)
[2017-02-23] MEDS: MIRTAZAPINE 15 MG TABLET PO SCH (20:40)
[2017-02-23 20:46] VITALS: BP 111/74
[2017-02-23] MEDS ORDERED: MORPHINE SULFATE IR 30 MG TABLET PO SCH (21:00)
[2017-02-23] MEDS ORDERED: MORPHINE SULFATE SR 15 MG TABLET.SA PO SCH (21:00)
[2017-02-24] MEDS: PANTOPRAZOLE SODIUM 40 MG TABLET.DR PO SCH (06:13)
[2017-02-24 07:30] VITALS: BP 88/54
[2017-02-24] MEDS ORDERED: MORPHINE SULFATE SR 15 MG TABLET.SA PO SCH (09:00)
[2017-02-24] MEDS: TAMSULOSIN HCL 0.4 MG CAP.SR.24H PO SCH (09:00)
[2017-02-24] MEDS: CYANOCOBALAMIN 1,000 MCG TABLET PO SCH (09:00)
[2017-02-24] MEDS: MULTIVIT, IRON, MIN NO. 8, FA TABLET PO SCH (09:00)
[2017-02-24] MEDS: GABAPENTIN 100 MG CAPSULE PO SCH ×2 (09:00→13:25)
[2017-02-24] MEDS: DOCUSATE SODIUM 100 MG CAPSULE PO SCH (09:00)
[2017-02-24] MEDS: ASCORBIC ACID 500 MG TABLET PO SCH (09:00)
[2017-02-24] MEDS: NICOTINE 14 MG/24HR PATCH TD SCH (09:00)
[2017-02-24] MEDS: METFORMIN HCL 500 MG TABLET PO SCH (09:00)
[2017-02-24 09:07] VITALS: BP 115/82
[2017-02-24] MEDS ORDERED: MORPHINE SULFATE SR 30 MG TABLET.SA PO SCH (09:15)
--- NOTE | 2017-02-24 09:28 | NUR ---
DC Note: The patient will be discharged today back to [facility] ([facility]) [[address], [place] [address] ] via ambulance at 2:30 pm. LUIGI spoke with Shakira in admissions who stated that they will be accepting the patient back today. LUIGI spoke with patient and he is aware and agreeable with the discharge plan. LUIIG has called the patient's nephew Kimani Bejarano and he is aware and agreeable with the DC plan. The patient will follow-up with financial assistance specialist Dr. Samy Bush and psychiatrist Dr. Yann Hanson at the facility. Addendum: 02/24/17 at 0953 by CLARA MEYERS The patient was provided with the brief intervention for substance abuse and was referred to [facility] , [facility] , and [facility] .
--- NOTE | 2017-02-24 14:30 | NUR ---
GPS/RN -DISCHARGE NOTE patient oriented to person place partially time and situation,compliant with meds and care, patient irritable today redirectable, focused on dentures. patient verbalizing we lost his bottom dentures, upon revision of patient belongings patient came in with ONLY bottom dentures on admission to [facility]. patient redirected, patient asked to check dentures in his mouth refused to remove to verify, was able to comply with frequent redirection, patient has bottom dentures in his mouth patient then proceeded to state then we lost his top ones, patient educated on belongings, per facility they do not have them either. patient less irritable upon discharge instructed on discharge and follow up care. The patient will be discharged today back to [facility] ([facility]) [[address], [place] [address] ] at this time via ambulance. The patient will follow-up with weft straightener Dr. Samy Bush and psychiatrist Dr. Yann Hanson at the facility. Patient noted to have some excoriation to buttocks, skin integrity impaired, care provided with cleansing with normal saline, pat dry and apply z guard cover with mepelex, encourage to comply with reposition and pressure relief at facility. patient verbalized understanding, photo taken of buttocks. facility provided with Abe nuñez RN Foundry Engineer. patient all other belongings accounted for: silver watch, yellow colored necklace with yellow colored star, a pair blue sweatpants,one le polo shirt , a pair white socks, one cell phone, and bottom dentures with patient .
== END 2017-02-24 14:30 | DRG 885 ==
LOC: GPS 16:09
PROVIDERS: ADMIT Psychiatry & Neurology Psychiatry; ATTEND Internal Medicine
DX: F39 Unspecified mood [affective] disorder (principal); F11.20 Opioid dependence, uncomplicated; G92 Toxic encephalopathy; N13.8 Other obstructive and reflux uropathy; Z87.891 Personal history of nicotine dependence; K21.9 Gastro-esophageal reflux disease without esophagitis; G47.00 Insomnia, unspecified; Z79.899 Other long term (current) drug therapy; Z91.81 History of falling; J44.9 Chronic obstructive pulmonary disease, unspecified; E11.9 Type 2 diabetes mellitus without complications; N40.1 Benign prostatic hyperplasia with lower urinary tract symptoms; F03.90 Unspecified dementia, unspecified severity, without behavioral disturbance, psychotic disturbance, mood disturbance, and anxiety; D64.9 Anemia, unspecified; G89.29 Other chronic pain; M19.90 Unspecified osteoarthritis, unspecified site
CPT/HCPCS: 36415; 71010; 83735; 84100; 84443; 84480; 85025; 97110; 97116; 97161; 97530